=== PATIENT | male | born 1950 | race Caucasian/White ===

== ENCOUNTER 2017-06-12 09:05 | Day surgery (SDC) | payer MEDICARE ==
[2017-06-12] MEDS ORDERED: DIPRIVAN 200 MG/20 ML IV ONE (09:06)
[2017-06-12] MEDS ORDERED: Ketamine HCl 50 MG/ML IV ONE (09:06)
--- NOTE | 2017-06-12 09:19 | HP ---
DATE OF SURGERY: 06/12/2017 HISTORY OF PRESENT ILLNESS: The patient is a 67 year-old who had some hoarseness followed by Dr. Perales. He had some swelling of the vocal cords. He has been swallowing fine. He swallows liquids according to the patient although the longer he goes harder to get by upper esophagus according to the patient. He is on 600 mg of ranitidine daily. He is in need of upper endoscopy for further evaluation. PAST MEDICAL HISTORY: Chronic obstructive pulmonary disease, obesity, sleep apnea, arthritis, diabetes, depression. He sees Dr. Hernandez. He had coronary stents in the past in [place]. He did have myocardial infarction back in 2008. He was up to 383 pounds and he is now down to 326 pounds. PAST SURGICAL HISTORY: Left knee replacement in the past, back surgery in 1976. Coronary stents in the past. Hernia surgery in the past. MEDICATIONS: He has been on Lasix, Allopurinol for some gout, Klor-Con, aspirin, Nitrostat PRN, Plavix, carvedilol, Imdur, Co-Q10, ropinirole, diclofenac, Protonix, meclizine, gabapentin, MiraLAX, hydrocodone, Bydureon one shot per week. ALLERGIES: PREDNISONE. SHELLFISH. FAMILY HISTORY: Heart disease, diabetes, hypertension. SOCIAL HISTORY: No current smoking. No alcohol abuse. REVIEW OF SYSTEMS: Twelve systems reviewed per admission assessment. He has sleep apnea, arthritis, vertigo. History of chronic obstructive pulmonary disease. He had some heart failure and myocardial infarction in the past, degenerative disc disease. No chest pain or palpitations other systems negative or noncontributory as above and per preadmission questionnaire. Otherwise as noted above. PHYSICAL EXAMINATION: GENERAL: A chronically ill gentleman. HEENT: Sclerae nonicteric. NECK: No JVD. CHEST: Equal excursion, nonlabored breathing. CVS: Regular rate and rhythm. ABDOMEN: Soft. No peritoneal signs. EXTREMITIES: No significant edema. NEURO: Alert, moving extremities symmetrically. No gross motor deficits noted. IMPRESSION: History of some hoarseness need to evaluate for upper GI contributing factors such as esophagitis, reflux or other etiology. I feel he is a candidate for upper endoscopy. Risks and benefits explained in detail including but not limited to bleeding or infection, small risk of bowel injury or perforation possibly requiring open procedure, small risk of missed or nondiagnosis or incomplete exam possibly requiring barium enema, other studies or procedures, general risk of anesthesia or sedation. He understands and agrees to the planned procedure and will proceed with EGD possible biopsy, possibly dilatation of narrowed area noted as an outpatient under MAC anesthesia. Will need to hold his blood thinners preoperatively to make it safe for the procedure.
[2017-06-12] MEDS ORDERED: Lactated Ringers 1,000 ML IV SCH (10:00)
[2017-06-12 12:53] VITALS: BP 153/86; PULSE 66; O2SAT 96
--- NOTE | 2017-06-12 14:03 | OP ---
SURGERY DATE/TIME: 06/12/2017 1132 PREOPERATIVE DIAGNOSES: History of hoarseness, question of reflux. POSTOPERATIVE DIAGNOSES: 1) Mild gastritis. 2) No evidence of visible reflux changes in the esophagus. PROCEDURES: 1) EGD with cold biopsy of the antrum to evaluate for Helicobacter pylori. 2) Cold biopsy distal esophagus to evaluate for microscopic esophagitis or other etiology. SURGEON: Dr. Aaron Gill. ANESTHESIA: MAC. ESTIMATED BLOOD LOSS: Minimal. INDICATIONS: As noted above. Risks and benefits explained in detail and not limited to in the office and consent had been obtained. DESCRIPTION OF PROCEDURE AND FINDINGS: The patient is taken to the operating room. MAC anesthesia was introduced. After official time out and no disagreement with planned procedure, bite block positioned. Video gastroscope passed down the oropharynx. A picture is taken of the cord area. Scope was able to be easily passed through the proximal esophagus. No signs of any narrowing that needed dilatation at this time. The scope is passed down through the patent distal esophagus. There had been no visible gross signs of macroscopic esophagitis, no signs of Mora's, no signs of any obvious mucosal lesions. The scope was passed into the stomach. The gastroesophageal junction was about 46 cm. The scope was able to be passed through a lot of fluid in the stomach, this was suctioned clear, did have some mild chronic gastritis. Cold biopsy taken to evaluate for Helicobacter pylori in the antrum. The scope was able to be passed through the patent pylorus to the junction of the second and third portion of the duodenum. The duodenum, duodenal bulb grossly unremarkable. No signs of any ulcers, masses or mucosal lesions. The scope was then pulled back to the antrum. Again, cold biopsy had been taken for Helicobacter pylori. Good hemostasis noted. On retroflex there was difficult view but there were no gross signs of any large hiatal hernia visible endoscopically at this time. The scope was straightened. The gastroesophageal junction 46 cm. Z-line was crisp. There were no signs of any Mora's. No signs of any macroscopic esophagitis. Given his symptoms and complaints, it was felt that he warranted biopsy to evaluate for eosinophilic esophagitis or other etiology. Random cold biopsy taken distal esophagus. Otherwise the remainder of the esophagus no signs of any obvious masses. No signs of any significantly narrowed area to warrant dilatation at this point. Again, no macroscopic evidence of reflux changes in the esophagus on this endoscopic view. The scope was withdrawn. The patient tolerated the procedure well. There was no family available to discuss the findings with. I will see him back in the office next week to go over the results.
== END 2017-06-12 13:00 | disposition home or self-care (01) ==
LOC: SDC 09:05
PROVIDERS: ATTEND Surgery
PROC: 0DB78ZX Excision of Stomach, Pylorus, Via Natural or Artificial Opening Endoscopic, Diagnostic (ICD-10-PCS; principal; 2017-06-12)
PROC: 0DB38ZX Excision of Lower Esophagus, Via Natural or Artificial Opening Endoscopic, Diagnostic (ICD-10-PCS; 2017-06-12)
DX: K29.70 Gastritis, unspecified, without bleeding (principal)
CPT/HCPCS: 00740; 36415; 82962; 88305; J2704

== ENCOUNTER 2023-08-04 12:04 | Emergency (ER) | payer MEDICARE ==
[2023-08-04 12:36] VITALS: TEMP 97.3; O2SAT 94
[2023-08-04] MEDS ORDERED: ANTIVERT 25 MG PO ONE (12:50)
[2023-08-04] MEDS ORDERED: ANTIVERT 25 MG ONE (13:02)
[2023-08-04 13:12] LABS: Absolute Neutrophil Ct (ANC) 3.89 x10^3/uL (1.4-6.9); Basophil (Absolute #) 0 x10^3/uL (0-0.4); Eosinophil % 0.7 % (0.00-5.0); Eosinophil (Absolute #) 0.04 x10^3/uL (0-0.5); Hematocrit 40.5 % (42-50); IMMATURE GRAN # 0.01 x10^3u/L (0.00-0.03); IMMATURE GRAN % 0.2 % (0.00-0.4); Lymphocyte (Absolute #) 0.95 x10^3/uL (1.0-4.6); Lymphocytes % 17.5 % (24.0-44.0); Mean Cell Volume 91.8 fL (78-100); Mean Corpuscular Hemoglobin 29.5 pg (26-32); Mean Corpuscular Hgb Concent. 32.1 g/dL (32-36); Mean Platelet Volume 9.8 fL (7.5-11.0); Monocyte (Absolute #) 0.55 x10^3/uL (0.0-1.3); Monocytes % 10.1 % (0.0-12.0); Neutrophil % 71.5 % (36.0-66.0); Platelet Count 119 x10^3/uL (150-450); Red Blood Count 4.41 x10^6/uL (4.1-5.6); Red Cell Distribution Width 13.9 % (11.5-14.0); White Blood Count 5.4 x10^3/uL (4.0-10.5)
[2023-08-04 13:26] LABS: ALBUMIN 3.4 g/dL (3.5-5.0); ANION GAP 9.3 MEQ/L (5-15); BILIRUBIN,TOTAL 0.4 mg/dL (0.2-1.3); Creatinine 1 0.95 mg/dL (0.66-1.25); Potassium 4.2 mmol/L (3.5-5.1); Total Protein 5.7 g/dL (6.3-8.2)
[2023-08-04 13:28] LABS: INR 0.97 (0.8-3.0); PROTIME 10.6 SECONDS (9.4-12.5); PTT 34.5 SECONDS (25.1-36.5)
--- NOTE | 2023-08-04 15:13 | XRAY ---
Indication: Dizziness. Sagittal, coronal, and axial MRI brain performed using pre and post T1, T2, FLAIR, diffusion, and ADC sequences. 20cc Dotarem contrast used. Comparison: None Age-appropriate global atrophy with minimal periventricular degenerative micro-ischemia signal. Left posterior temporal lobe demonstrates small focus of encephalomalacia with surrounding gliosis favoring infarct. Following gadolinium, infarct demonstrates 9 x 11 x 9 mm focus round enhancement which can persist up to 8-10 weeks following infarct. No acute intracranial hemorrhage, abnormal extra-axial fluid collection, or mass effect. Diffusion images are negative for restricted signal. Following gadolinium, no other abnormal enhancing intra or extra-axial mass. Fourth ventricle is midline without hydrocephalus. 7/8 cranial nerve complex bilaterally symmetric. Normal flow void signal within the major intracerebral circulation. Normal-appearing craniocervical junction and sella turcica. Paranasal sinuses are clear. Impression: 1. 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 Small focus underlying enhancement suggests subacute infarct. 2. Atrophy and degenerative micro-ischemia within normal limits for patient's age. 3. Remaining MRI brain with contrast exam is negative.
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
[2023-08-04] MEDS ORDERED: DECADRON 10MG INJ. IV ONE (17:27)
[2023-08-04] MEDS ORDERED: DECADRON 10MG INJ. ONE (17:30)
[2023-08-04 17:51] VITALS: BP 127/77; PULSE 70; RESP 15
== END 2023-08-04 17:49 | disposition home or self-care (01) ==
LOC: ED 12:04
DX: G93.9 Disorder of brain, unspecified (principal); R42 Dizziness and giddiness; I10 Essential (primary) hypertension; E11.42 Type 2 diabetes mellitus with diabetic polyneuropathy; Z79.899 Other long term (current) drug therapy
CPT/HCPCS: 36000; 36415; 70553; 80053; 84484; 85025; 85610; 85730; 93005; 96374; 99284; J1100; J1642; A9270-GY

== ENCOUNTER 2023-12-06 13:16 | Observation (INO) | payer MEDICARE ==
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
[2023-12-06 13:52] LABS: Absolute Neutrophil Ct (ANC) 16.73 x10^3/uL (1.4-6.9); BASOPHIL % 0.2 % (0.0-0.4); Basophil (Absolute #) 0.03 x10^3/uL (0-0.4); Eosinophil (Absolute #) 0 x10^3/uL (0-0.5); Hematocrit 45.3 % (42-50); Hemoglobin 14.7 g/dL (12.5-18.0); IMMATURE GRAN # 0.27 x10^3u/L (0.00-0.03); IMMATURE GRAN % 1.5 % (0.00-0.4); Lymphocyte (Absolute #) 0.61 x10^3/uL (1.0-4.6); Lymphocytes % 3.3 % (24.0-44.0); Mean Cell Volume 90.8 fL (78-100); Mean Corpuscular Hemoglobin 29.5 pg (26-32); Mean Corpuscular Hgb Concent. 32.5 g/dL (32-36); Mean Platelet Volume 10.1 fL (7.5-11.0); Monocyte (Absolute #) 0.78 x10^3/uL (0.0-1.3); Monocytes % 4.2 % (0.0-12.0); Neutrophil % 90.8 % (36.0-66.0); Platelet Count 125 x10^3/uL (150-450); Red Blood Count 4.99 x10^6/uL (4.1-5.6); White Blood Count 18.4 x10^3/uL (4.0-10.5)
[2023-12-06 14:06] LABS: INR 1.05 (0.8-3.0); PROTIME 11.4 SECONDS (9.4-12.5)
[2023-12-06] MEDS ORDERED: Sodium Chloride 0.9% 1000 ML 1,000 ML ONE ×2 (14:09→20:52)
[2023-12-06] MEDS: Sodium Chloride 0.9% 1000 ML 1,000 ML IV SCH ×2 (14:11→20:54)
[2023-12-06 14:16] LABS: ALBUMIN 3.4 g/dL (3.5-5.0); ANION GAP 11.3 MEQ/L (5-15); BILIRUBIN,TOTAL 0.9 mg/dL (0.2-1.3); Calcium 8.4 mg/dL (8.4-10.2); Creatinine 1 0.94 mg/dL (0.66-1.25); EST GLOMERULAR FILTRATION RATE 85.1 ML/MIN; MAGNESIUM 1.9 mg/dL (1.6-2.3); Potassium 4.6 mmol/L (3.5-5.1); Total Protein 5.6 g/dL (6.3-8.2)
--- NOTE | 2023-12-06 14:48 | XRAY ---
Indication: Tachycardia. Leukocytosis. Comparison: September 17, 2016 Portable apical lordotic chest again hyperinflated with new minimal lingula infiltrate/atelectasis. Remaining heart and right lung unremarkable with incidental new right Port-A-Cath. Bony thorax intact.
[2023-12-06 15:19] LABS: ADD URINE CULTURE? NO (NO); Appearance Clear (Clear); Bacteria None Seen /HPF (None Seen); Bilirubin Negative (Negative); Blood Negative (Negative); Epithelial Cells None Seen /HPF (None Seen); Glucose, Urine Negative (Negative); Hyaline Casts NONE SEEN /LPF (0-2); Ketones Negative (Negative); Leukocyte Esterase Negative (Negative); Nitrite Negative (Negative); Ph 5.5 (4.6-8.0); Protein,Urine Dip Negative (Negative); RBC 0-2 /HPF (0-5); Urobilinogen 0.2 mg/dL (0.2); WBC 0-2 /HPF (0-5)
[2023-12-06] MEDS ORDERED: ROCEPHIN 1 GM / 100 ML NaCl 1 GM/100 ML IVPB IV ONE (15:27)
[2023-12-06] MEDS: ROCEPHIN 1 GM / 100 ML NaCl 1 GM/100 ML IVPB IV ONE (15:28)
[2023-12-06 15:49] LABS: INFLUENZA A NEGATIVE (NEGATIVE); INFLUENZA B NEGATIVE (NEGATIVE); RESPIRATORY SYNCTIAL VIRUS NEGATIVE (NEGATIVE); SARS-CoV-2 Xpert Express NEGATIVE (NEGATIVE)
[2023-12-06] MEDS ORDERED: Sodium Chloride 0.9% 500 ML 500 ML IV ONE (17:18)
[2023-12-06] MEDS: Sodium Chloride 0.9% 500 ML 500 ML IV ONE (17:22)
[2023-12-06] MEDS ORDERED: Zofran 4 MG/2 ML VIAL IV PRN (18:45)
[2023-12-06] MEDS ORDERED: TYLENOL 325 MG PO PRN (18:45)
[2023-12-06] MEDS ORDERED: HUMULIN R SQ PRN (18:45)
[2023-12-06] MEDS: ROCEPHIN 1 GM / 100 ML NaCl 1 GM/100 ML IVPB IV SCH (20:51)
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
[2023-12-06] MEDS ORDERED: NORCO 10-325 MG PO PRN (22:35)
[2023-12-07 05:18] LABS: Absolute Neutrophil Ct (ANC) 10.48 x10^3/uL (1.4-6.9); BASOPHIL % 0.2 % (0.0-0.4); Basophil (Absolute #) 0.03 x10^3/uL (0-0.4); Eosinophil % 0.3 % (0.00-5.0); Eosinophil (Absolute #) 0.04 x10^3/uL (0-0.5); Hematocrit 43.3 % (42-50); Hemoglobin 13.9 g/dL (12.5-18.0); IMMATURE GRAN # 0.25 x10^3u/L (0.00-0.03); IMMATURE GRAN % 1.9 % (0.00-0.4); Lymphocyte (Absolute #) 1.88 x10^3/uL (1.0-4.6); Mean Cell Volume 90.4 fL (78-100); Mean Corpuscular Hgb Concent. 32.1 g/dL (32-36); Mean Platelet Volume 9.6 fL (7.5-11.0); Monocyte (Absolute #) 0.71 x10^3/uL (0.0-1.3); Monocytes % 5.3 % (0.0-12.0); Neutrophil % 78.3 % (36.0-66.0); Platelet Count 105 x10^3/uL (150-450); Red Blood Count 4.79 x10^6/uL (4.1-5.6); Red Cell Distribution Width 16.4 % (11.5-14.0); White Blood Count 13.4 x10^3/uL (4.0-10.5)
[2023-12-07 05:34] LABS: ALBUMIN 3.2 g/dL (3.5-5.0); ANION GAP 8.2 MEQ/L (5-15); BILIRUBIN,TOTAL 0.7 mg/dL (0.2-1.3); Calcium 8.2 mg/dL (8.4-10.2); Creatinine 1 0.95 mg/dL (0.66-1.25); Potassium 4.6 mmol/L (3.5-5.1); Total Protein 5.1 g/dL (6.3-8.2)
[2023-12-07] MEDS: Neurontin PO SCH (09:07)
[2023-12-07] MEDS: Zetia 10 MG PO SCH (09:07)
[2023-12-07] MEDS: BUSPAR 5 MG PO SCH (09:08)
[2023-12-07] MEDS: PLAVIX Tablet PO SCH (09:08)
[2023-12-07] MEDS: Imdur 30 MG PO SCH (09:09)
[2023-12-07] MEDS: Coreg 3.125 MG PO SCH (09:09)
[2023-12-07] MEDS: ZYLOPRIM 300 MG PO SCH (09:09)
[2023-12-07] MEDS: Cyclobenzaprine 10 MG PO SCH (09:09)
[2023-12-07] MEDS: Klor Con PO SCH (09:09)
[2023-12-07] MEDS: Ecotrin 325 MG PO SCH (09:10)
[2023-12-07] MEDS: ceLEXa 20 MG PO SCH (09:10)
[2023-12-07] MEDS: Flomax 0.4 MG PO SCH (09:10)
[2023-12-07] MEDS: ATARAX 25 MG PO SCH (09:10)
[2023-12-07] MEDS: Lasix 40 MG PO SCH (09:10)
[2023-12-07] MEDS ORDERED: LASIX 20 MG PO SCH (10:00)
[2023-12-07] MEDS ORDERED: NON-FORMULARY ITEM (Citalopram Hydrobromide [Celexa] 40 MG Tablet) PO SCH (10:00)
[2023-12-07] MEDS ORDERED: NON-FORMULARY ITEM (Gabapentin [Neurontin] 600 MG Tablet) PO SCH (10:00)
[2023-12-07] MEDS ORDERED: Zithromax 500 MG/ 250 ML NaCl Premix 500 MG/250 ML IVPB IV SCH (10:00)
[2023-12-07] MEDS ORDERED: NON-FORMULARY ITEM (Buspirone Hcl [Buspirone Hcl] 30 MG Tablet) PO SCH (10:00)
[2023-12-07] MEDS ORDERED: NON-FORMULARY ITEM (Diazepam [Valium] 10 MG Tablet) PO SCH (10:00)
[2023-12-07 11:23] VITALS: BP 107/70; PULSE 72; RESP 17; TEMP 97.7; O2SAT 97
--- NOTE | 2023-12-07 13:03 | PCM.DS ---
Discharge Summary Date of Admission: 12/06/23 18:25 Date of Discharge: 12/07/2023 Admitting Physician: LAWANDA CAMPBELL MD Primary Care Provider: SIMONA DOBBINS Allergies Allergies shellfish derived Allergy (Verified 08/04/23 12:19) Nausea and Vomiting dye Allergy (Uncoded 08/04/23 12:19) Hospital Summary - Hospital Course Hospital Course: Admission information: 73-year-old man with history of CAD, HTN, COPD, GERD, and former tobacco abuse, who was sent from cardiology clinic with reported A-fib with RVR. In routine follow-up in clinic today, patient was having palpitations and diaphoresis, and when evaluated by Dr. Hernandez, was noted to be in A-fib with RVR with a rate in the 140s. He was sent to the ED for stabilization and evaluation. However, on arrival, he was back in sinus rhythm, with sinus tachycardia in the 110s. He was no longer having palpitations, but was noted to have an elevated white count. However, patient reports that he has been on prednisone for the past few weeks because of recurrent diarrhea secondary to his prior renal cancer. He denies cough, fevers, dyspnea, or sick contacts. He is only symptomatic treatment at this point is some bilateral hand pain when gripping for the past few weeks. In the ED he was started on Rocephin and azithromycin, and given slow IV fluids, but did not require any rate lowering medications. Hospital Course: ## Reported atrial fibrillation unable to confirm here, and we do not have access to his EKG reports from Dr. Hernandez's office, but presumably was truly in A-fib earlier. However, remains in sinus rhythm here. 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 Likely this is a paroxysmal atrial fibrillation. His [id number] score is 3. Possibly this was due to dehydration, as patient had mildly elevated lactate on arrival, quickly decreasing on repeat after getting some IV fluids. -Patient's HR remained controlled and in NSR while here. Patient wanted to be discharged home. Will have him follow-up as an outpatient with cardiology to discuss initiation of anticoagulation, especially as patient is already on Plavix and aspirin for cardiac stents. Call placed to Dr. Hernandez's office today but unable to talk to him prior to patient's discharge. Continue home Coreg 3.125, aspirin 325 ## Leukocytosis patient had elevated white blood cell count on arrival, but he has been on prednisone for the last few weeks for diarrhea, which has improved. There was concern in the ED that patient might have pneumonia, based on chest x- ray report. However, patient has no signs or symptoms of pneumonia, and upon my review of the x-ray, as no clear consolidation, and radiologist report is equally consistent with atelectasis. Discontinue antibiotics ## COPD patient remains stable on room air currently Follow oxygen. ## Anxiety and depression Continue home BuSpar, diazepam ## BPH Continue home Flomax ## Chronic back pain Continue home [place] 10 ## CAD with history of 2 prior stents, including one last year by Dr. Hernandez. Continue aspirin, Plavix, Coreg Patient stable for discharge today with outpatient follow up with Dr. Hernandez within a week. 35 mins spent in the discharge process. - Vitals & Intake/Output Vital Signs: Vital Signs Temperature 97.7 F 12/07/23 11:22 Pulse Rate 72 12/07/23 11:22 Respiratory Rate 17 12/07/23 11:22 Blood Pressure 107/70 12/07/23 11:22 O2 Sat by Pulse Oximetry 97 12/07/23 11:22 Intake & Output: Intake & Output 12/05/23 12/06/23 12/07/23 12/08/23 11:59 11:59 11:59 11:59 Intake Total 1000 Balance 1000 Weight 127.913 kg - Lab Result Diagrams: 12/07/23 04:30 12/07/23 04:30 Lab Results-Last 24 Hrs: Lab Results-Last 24 Hours 12/06/23 12/06/23 12/06/23 Range/Units 13:35 13:35 13:35 WBC 18.4 H (4.0-10.5) x10^3/uL RBC 4.99 (4.1-5.6) x10^6/uL Hgb 14.7 (12.5-18.0) g/dL Hct 45.3 (42-50) % MCV 90.8 (78-100) fL MCH 29.5 (26-32) pg MCHC 32.5 (32-36) g/dL RDW 16.0 H (11.5-14.0) % Plt Count 125 L (150-450) x10^3/uL MPV 10.1 (7.5-11.0) fL Gran % 90.8 H (36.0-66.0) % Immature Gran % (Auto) 1.5 H (0.00-0.4) % Nucleat RBC Rel Count 0.0 (0.00-0.1) % Eos # (Auto) 0 (0-0.5) x10^3/uL Immature Gran # (Auto) 0.27 H (0.00-0.03) x10^3u/L Absolute Lymphs (auto) 0.61 L (1.0-4.6) x10^3/uL Absolute Monos (auto) 0.78 (0.0-1.3) x10^3/uL Absolute Nucleated RBC 0.00 (0.00-0.01) x10^3u/L Lymphocytes % 3.3 L (24.0-44.0) % Monocytes % 4.2 (0.0-12.0) % Eosinophils % 0.0 (0.00-5.0) % Basophils % 0.2 (0.0-0.4) % Absolute Granulocytes 16.73 H (1.4-6.9) x10^3/uL Basophils # 0.03 (0-0.4) x10^3/uL PT 11.4 (9.4-12.5) SECONDS INR 1.05 (0.8-3.0) Sodium 138 (135-145) mmol/L Potassium 4.6 (3.5-5.1) mmol/L Chloride 102 (98-107) mmol/L Carbon Dioxide 30 (22-30) mmol/L Anion Gap 11.3 (5-15) MEQ/L BUN 36 H (9-20) mg/dL Creatinine 0.94 (0.66-1.25) mg/dL Estimated GFR 85.1 ML/MIN Glucose 116 H (74-106) mg/dL POC Glucometer (50 to 500) mg/dL Hemoglobin A1c (4.5-6.0) % Lactic Acid (0.4-2.0) Calcium 8.4 (8.4-10.2) mg/dL Magnesium 1.9 (1.6-2.3) mg/dL Total Bilirubin 0.90 (0.2-1.3) mg/dL AST 22 (17-59) U/L ALT 36 (0-50) U/L Alkaline Phosphatase 97 (38-126) U/L Troponin I (0.000-0.034) ng/mL NT-Pro-B Natriuret Pep 609 (<300) pg/mL Serum Total Protein 5.6 L (6.3-8.2) g/dL Albumin 3.4 L (3.5-5.0) g/dL Urine Color (Yellow) Urine Appearance (Clear) Urine pH (4.6-8.0) Ur Specific [place] (1.005-1.030) Urine Protein (Negative) Urine Glucose (UA) (Negative) mg/dL Urine Ketones (Negative) Urine Blood (Negative) Urine Nitrite (Negative) Urine Bilirubin (Negative) Urine Urobilinogen (0.2) mg/dL Ur Leukocyte Esterase (Negative) U Hyaline Cast (Auto) (0-2) /LPF Urine Microscopic RBC (0-5) /HPF Urine Microscopic WBC (0-5) /HPF Ur Epithelial Cells (None Seen) /HPF Urine Bacteria (None Seen) /HPF Urine Culture Reflexed (NO) Monoscreen (NEGATIVE) Influenza Type A Ag (NEGATIVE) Influenza Type B Ag (NEGATIVE) RSV (PCR) (NEGATIVE) SARS-CoV-2 (PCR) (NEGATIVE) 12/06/23 12/06/23 12/06/23 Range/Units 13:35 13:35 13:35 WBC (4.0-10.5) x10^3/uL RBC (4.1-5.6) x10^6/uL Hgb (12.5-18.0) g/dL Hct (42-50) % MCV (78-100) fL MCH (26-32) pg MCHC (32-36) g/dL RDW (11.5-14.0) % Plt Count (150-450) x10^3/uL MPV (7.5-11.0) fL Gran % (36.0-66.0) % Immature Gran % (Auto) (0.00-0.4) % Nucleat RBC Rel Count (0.00-0.1) % Eos # (Auto) (0-0.5) x10^3/uL Immature Gran # (Auto) (0.00-0.03) x10^3u/L Absolute Lymphs (auto) (1.0-4.6) x10^3/uL Absolute Monos (auto) (0.0-1.3) x10^3/uL Absolute Nucleated RBC (0.00-0.01) x10^3u/L Lymphocytes % (24.0-44.0) % Monocytes % (0.0-12.0) % Eosinophils % (0.00-5.0) % Basophils % (0.0-0.4) % Absolute Granulocytes (1.4-6.9) x10^3/uL Basophils # (0-0.4) x10^3/uL PT (9.4-12.5) SECONDS INR (0.8-3.0) Sodium (135-145) mmol/L Potassium (3.5-5.1) mmol/L Chloride (98-107) mmol/L Carbon Dioxide (22-30) mmol/L Anion Gap (5-15) MEQ/L BUN (9-20) mg/dL Creatinine (0.66-1.25) mg/dL Estimated GFR ML/MIN Glucose (74-106) mg/dL POC Glucometer (50 to 500) mg/dL Hemoglobin A1c 5.53 (4.5-6.0) % Lactic Acid (0.4-2.0) Calcium (8.4-10.2) mg/dL Magnesium (1.6-2.3) mg/dL Total Bilirubin (0.2-1.3) mg/dL AST (17-59) U/L ALT (0-50) U/L Alkaline Phosphatase (38-126) U/L Troponin I 0.022 (0.000-0.034) ng/mL NT-Pro-B Natriuret Pep (<300) pg/mL Serum Total Protein (6.3-8.2) g/dL Albumin (3.5-5.0) g/dL Urine Color (Yellow) Urine Appearance (Clear) Urine pH (4.6-8.0) Ur Specific [place] (1.005-1.030) Urine Protein (Negative) Urine Glucose (UA) (Negative) mg/dL Urine Ketones (Negative) Urine Blood (Negative) Urine Nitrite (Negative) Urine Bilirubin (Negative) Urine Urobilinogen (0.2) mg/dL Ur Leukocyte Esterase (Negative) U Hyaline Cast (Auto) (0-2) /LPF Urine Microscopic RBC (0-5) /HPF Urine Microscopic WBC (0-5) /HPF Ur Epithelial Cells (None Seen) /HPF Urine Bacteria (None Seen) /HPF Urine Culture Reflexed (NO) Monoscreen NEGATIVE (NEGATIVE) Influenza Type A Ag (NEGATIVE) Influenza Type B Ag (NEGATIVE) RSV (PCR) (NEGATIVE) SARS-CoV-2 (PCR) (NEGATIVE) 12/06/23 12/06/23 12/06/23 Range/Units 14:27 14:46 14:50 WBC (4.0-10.5) x10^3/uL RBC (4.1-5.6) x10^6/uL Hgb (12.5-18.0) g/dL Hct (42-50) % MCV (78-100) fL MCH (26-32) pg MCHC (32-36) g/dL RDW (11.5-14.0) % Plt Count (150-450) x10^3/uL MPV (7.5-11.0) fL Gran % (36.0-66.0) % Immature Gran % (Auto) (0.00-0.4) % Nucleat RBC Rel Count (0.00-0.1) % Eos # (Auto) (0-0.5) x10^3/uL Immature Gran # (Auto) (0.00-0.03) x10^3u/L Absolute Lymphs (auto) (1.0-4.6) x10^3/uL Absolute Monos (auto) (0.0-1.3) x10^3/uL Absolute Nucleated RBC (0.00-0.01) x10^3u/L Lymphocytes % (24.0-44.0) % Monocytes % (0.0-12.0) % Eosinophils % (0.00-5.0) % Basophils % (0.0-0.4) % Absolute Granulocytes (1.4-6.9) x10^3/uL Basophils # (0-0.4) x10^3/uL PT (9.4-12.5) SECONDS INR (0.8-3.0) Sodium (135-145) mmol/L Potassium (3.5-5.1) mmol/L Chloride (98-107) mmol/L Carbon Dioxide (22-30) mmol/L Anion Gap (5-15) MEQ/L BUN (9-20) mg/dL Creatinine (0.66-1.25) mg/dL Estimated GFR ML/MIN Glucose (74-106) mg/dL POC Glucometer (50 to 500) mg/dL Hemoglobin A1c (4.5-6.0) % Lactic Acid 2.9 H (0.4-2.0) Calcium (8.4-10.2) mg/dL Magnesium (1.6-2.3) mg/dL Total Bilirubin (0.2-1.3) mg/dL AST (17-59) U/L ALT (0-50) U/L Alkaline Phosphatase (38-126) U/L Troponin I (0.000-0.034) ng/mL NT-Pro-B Natriuret Pep (<300) pg/mL Serum Total Protein (6.3-8.2) g/dL Albumin (3.5-5.0) g/dL Urine Color Yellow (Yellow) Urine Appearance Clear (Clear) Urine pH 5.5 (4.6-8.0) Ur Specific [place] 1.020 (1.005-1.030) Urine Protein Negative (Negative) Urine Glucose (UA) Negative (Negative) mg/dL Urine Ketones Negative (Negative) Urine Blood Negative (Negative) Urine Nitrite Negative (Negative) Urine Bilirubin Negative (Negative) Urine Urobilinogen 0.2 (0.2) mg/dL Ur Leukocyte Esterase Negative (Negative) U Hyaline Cast (Auto) NONE SEEN (0-2) /LPF Urine Microscopic RBC 0-2 (0-5) /HPF Urine Microscopic WBC 0-2 (0-5) /HPF Ur Epithelial Cells None Seen (None Seen) /HPF Urine Bacteria None Seen (None Seen) /HPF Urine Culture Reflexed NO (NO) Monoscreen (NEGATIVE) Influenza Type A Ag NEGATIVE (NEGATIVE) Influenza Type B Ag NEGATIVE (NEGATIVE) RSV (PCR) NEGATIVE (NEGATIVE) SARS-CoV-2 (PCR) NEGATIVE (NEGATIVE) 12/06/23 12/06/23 12/06/23 Range/Units 16:13 16:38 18:51 WBC (4.0-10.5) x10^3/uL RBC (4.1-5.6) x10^6/uL Hgb (12.5-18.0) g/dL Hct (42-50) % MCV (78-100) fL MCH (26-32) pg MCHC (32-36) g/dL RDW (11.5-14.0) % Plt Count (150-450) x10^3/uL MPV (7.5-11.0) fL Gran % (36.0-66.0) % Immature Gran % (Auto) (0.00-0.4) % Nucleat RBC Rel Count (0.00-0.1) % Eos # (Auto) (0-0.5) x10^3/uL Immature Gran # (Auto) (0.00-0.03) x10^3u/L Absolute Lymphs (auto) (1.0-4.6) x10^3/uL Absolute Monos (auto) (0.0-1.3) x10^3/uL Absolute Nucleated RBC (0.00-0.01) x10^3u/L Lymphocytes % (24.0-44.0) % Monocytes % (0.0-12.0) % Eosinophils % (0.00-5.0) % Basophils % (0.0-0.4) % Absolute Granulocytes (1.4-6.9) x10^3/uL Basophils # (0-0.4) x10^3/uL PT (9.4-12.5) SECONDS INR (0.8-3.0) Sodium (135-145) mmol/L Potassium (3.5-5.1) mmol/L Chloride (98-107) mmol/L Carbon Dioxide (22-30) mmol/L Anion Gap (5-15) MEQ/L BUN (9-20) mg/dL Creatinine (0.66-1.25) mg/dL Estimated GFR ML/MIN Glucose (74-106) mg/dL POC Glucometer 40 L* (50 to 500) mg/dL Hemoglobin A1c (4.5-6.0) % Lactic Acid 1.2 (0.4-2.0) Calcium (8.4-10.2) mg/dL Magnesium (1.6-2.3) mg/dL Total Bilirubin (0.2-1.3) mg/dL AST (17-59) U/L ALT (0-50) U/L Alkaline Phosphatase (38-126) U/L Troponin I 0.027 (0.000-0.034) ng/mL NT-Pro-B Natriuret Pep (<300) pg/mL Serum Total Protein (6.3-8.2) g/dL Albumin (3.5-5.0) g/dL Urine Color (Yellow) Urine Appearance (Clear) Urine pH (4.6-8.0) Ur Specific [place] (1.005-1.030) Urine Protein (Negative) Urine Glucose (UA) (Negative) mg/dL Urine Ketones (Negative) Urine Blood (Negative) Urine Nitrite (Negative) Urine Bilirubin (Negative) Urine Urobilinogen (0.2) mg/dL Ur Leukocyte Esterase (Negative) U Hyaline Cast (Auto) (0-2) /LPF Urine Microscopic RBC (0-5) /HPF Urine Microscopic WBC (0-5) /HPF Ur Epithelial Cells (None Seen) /HPF Urine Bacteria (None Seen) /HPF Urine Culture Reflexed (NO) Monoscreen (NEGATIVE) Influenza Type A Ag (NEGATIVE) Influenza Type B Ag (NEGATIVE) RSV (PCR) (NEGATIVE) SARS-CoV-2 (PCR) (NEGATIVE) 12/06/23 12/06/23 12/07/23 Range/Units 20:11 22:03 04:30 WBC 13.4 H (4.0-10.5) x10^3/uL RBC 4.79 (4.1-5.6) x10^6/uL Hgb 13.9 (12.5-18.0) g/dL Hct 43.3 (42-50) % MCV 90.4 (78-100) fL MCH 29.0 (26-32) pg MCHC 32.1 (32-36) g/dL RDW 16.4 H (11.5-14.0) % Plt Count 105 L (150-450) x10^3/uL MPV 9.6 (7.5-11.0) fL Gran % 78.3 H (36.0-66.0) % Immature Gran % (Auto) 1.9 H (0.00-0.4) % Nucleat RBC Rel Count 0.0 (0.00-0.1) % Eos # (Auto) 0.04 (0-0.5) x10^3/uL Immature Gran # (Auto) 0.25 H (0.00-0.03) x10^3u/L Absolute Lymphs (auto) 1.88 (1.0-4.6) x10^3/uL Absolute Monos (auto) 0.71 (0.0-1.3) x10^3/uL Absolute Nucleated RBC 0.00 (0.00-0.01) x10^3u/L Lymphocytes % 14.0 L (24.0-44.0) % Monocytes % 5.3 (0.0-12.0) % Eosinophils % 0.3 (0.00-5.0) % Basophils % 0.2 (0.0-0.4) % Absolute Granulocytes 10.48 H (1.4-6.9) x10^3/uL Basophils # 0.03 (0-0.4) x10^3/uL PT (9.4-12.5) SECONDS INR (0.8-3.0) Sodium (135-145) mmol/L Potassium (3.5-5.1) mmol/L Chloride (98-107) mmol/L Carbon Dioxide (22-30) mmol/L Anion Gap (5-15) MEQ/L BUN (9-20) mg/dL Creatinine (0.66-1.25) mg/dL Estimated GFR ML/MIN Glucose (74-106) mg/dL POC Glucometer 165 H (50 to 500) mg/dL Hemoglobin A1c (4.5-6.0) % Lactic Acid (0.4-2.0) Calcium (8.4-10.2) mg/dL Magnesium (1.6-2.3) mg/dL Total Bilirubin (0.2-1.3) mg/dL AST (17-59) U/L ALT (0-50) U/L Alkaline Phosphatase (38-126) U/L Troponin I 0.034 (0.000-0.034) ng/mL NT-Pro-B Natriuret Pep (<300) pg/mL Serum Total Protein (6.3-8.2) g/dL Albumin (3.5-5.0) g/dL Urine Color (Yellow) Urine Appearance (Clear) Urine pH (4.6-8.0) Ur Specific [place] (1.005-1.030) Urine Protein (Negative) Urine Glucose (UA) (Negative) mg/dL Urine Ketones (Negative) Urine Blood (Negative) Urine Nitrite (Negative) Urine Bilirubin (Negative) Urine Urobilinogen (0.2) mg/dL Ur Leukocyte Esterase (Negative) U Hyaline Cast (Auto) (0-2) /LPF Urine Microscopic RBC (0-5) /HPF Urine Microscopic WBC (0-5) /HPF Ur Epithelial Cells (None Seen) /HPF Urine Bacteria (None Seen) /HPF Urine Culture Reflexed (NO) Monoscreen (NEGATIVE) Influenza Type A Ag (NEGATIVE) Influenza Type B Ag (NEGATIVE) RSV (PCR) (NEGATIVE) SARS-CoV-2 (PCR) (NEGATIVE) 12/07/23 Range/Units 04:30 WBC (4.0-10.5) x10^3/uL RBC (4.1-5.6) x10^6/uL Hgb (12.5-18.0) g/dL Hct (42-50) % MCV (78-100) fL MCH (26-32) pg MCHC (32-36) g/dL RDW (11.5-14.0) % Plt Count (150-450) x10^3/uL MPV (7.5-11.0) fL Gran % (36.0-66.0) % Immature Gran % (Auto) (0.00-0.4) % Nucleat RBC Rel Count (0.00-0.1) % Eos # (Auto) (0-0.5) x10^3/uL Immature Gran # (Auto) (0.00-0.03) x10^3u/L Absolute Lymphs (auto) (1.0-4.6) x10^3/uL Absolute Monos (auto) (0.0-1.3) x10^3/uL Absolute Nucleated RBC (0.00-0.01) x10^3u/L Lymphocytes % (24.0-44.0) % Monocytes % (0.0-12.0) % Eosinophils % (0.00-5.0) % Basophils % (0.0-0.4) % Absolute Granulocytes (1.4-6.9) x10^3/uL Basophils # (0-0.4) x10^3/uL PT (9.4-12.5) SECONDS INR (0.8-3.0) Sodium 135 (135-145) mmol/L Potassium 4.6 (3.5-5.1) mmol/L Chloride 102 (98-107) mmol/L Carbon Dioxide 30 (22-30) mmol/L Anion Gap 8.2 (5-15) MEQ/L BUN 37 H (9-20) mg/dL Creatinine 0.95 (0.66-1.25) mg/dL Estimated GFR 84.0 ML/MIN Glucose 100 (74-106) mg/dL POC Glucometer (50 to 500) mg/dL Hemoglobin A1c (4.5-6.0) % Lactic Acid (0.4-2.0) Calcium 8.2 L (8.4-10.2) mg/dL Magnesium (1.6-2.3) mg/dL Total Bilirubin 0.70 (0.2-1.3) mg/dL AST 23 (17-59) U/L ALT 35 (0-50) U/L Alkaline Phosphatase 103 (38-126) U/L Troponin I (0.000-0.034) ng/mL NT-Pro-B Natriuret Pep (<300) pg/mL Serum Total Protein 5.1 L (6.3-8.2) g/dL Albumin 3.2 L (3.5-5.0) g/dL Urine Color (Yellow) Urine Appearance (Clear) Urine pH (4.6-8.0) Ur Specific [place] (1.005-1.030) Urine Protein (Negative) Urine Glucose (UA) (Negative) mg/dL Urine Ketones (Negative) Urine Blood (Negative) Urine Nitrite (Negative) Urine Bilirubin (Negative) Urine Urobilinogen (0.2) mg/dL Ur Leukocyte Esterase (Negative) U Hyaline Cast (Auto) (0-2) /LPF Urine Microscopic RBC (0-5) /HPF Urine Microscopic WBC (0-5) /HPF Ur Epithelial Cells (None Seen) /HPF Urine Bacteria (None Seen) /HPF Urine Culture Reflexed (NO) Monoscreen (NEGATIVE) Influenza Type A Ag (NEGATIVE) Influenza Type B Ag (NEGATIVE) RSV (PCR) (NEGATIVE) SARS-CoV-2 (PCR) (NEGATIVE) Micro Results-Entire Visit: Microbiology 12/06/23 14:46 Urine Culture - Preliminary Catherized No growth. - Radiology Exams Ordered Rad Exams-Entire Visit: Radiology Procedures Category Date Time Status CHEST 1 VIEW (PORTABLE) Stat Exams 12/06/23 14:28 Completed - Procedures and Test Procedures and Tests throughout Hospitalization: Therapy Orders & Screens 12/06/23 18:45 EKG REPEAT IN AM Comment: Discharge Exam General Appearance: no apparent distress, alert Neurologic Exam: alert, oriented x 3, cooperative, normal mood/affect, nml cerebellar function, sensation nml, No motor deficits Eye Exam: PERRL, EOMI, eyes nml inspection Ears, Nose, Throat Exam: normal ENT inspection, pharynx normal, moist mucous membranes Neck Exam: normal inspection, non-tender, supple, full range of motion Respiratory Exam: normal breath sounds, lungs clear, No respiratory distress Cardiovascular Exam: regular rate/rhythm, normal heart sounds Gastrointestinal/Abdomen Exam: soft, No tenderness, No mass Male Genitalia Exam: deferred Rectal Exam: deferred Extremity Exam: normal inspection, normal range of motion Telemedicine Encounter - Telemedicine Encounter Telemedicine Encounter: The entirety of this encounter was performed via Telemedicine" - Discharge Discharge Date: 12/07/23 Condition: Stable Prescriptions: Continue Hydrocodone/APAP 10/325 mg [[place] 10/325 MG TableT] 1 tab PO Q4H PRN PRN PRN Reason: Pain Gabapentin [Neurontin] 800 mg PO TID Meclizine HCl 25 mg [Antivert 25 mg] 25 mg PO QID Potassium Chloride Tab* [Klor Con] 10 meq PO BID Furosemide 20 mg [Lasix 20 mg] 40 mg PO DAILY Allopurinol 300 mg [Zyloprim 300 mg] 300 mg PO DAILY Ubidecarenone [Co Q-10] 400 mg PO DAILY Carvedilol 3.125 mg [Coreg 3.125 MG] 3.125 mg PO BID Isosorbide Mononitrate 30 mg [Imdur 30 MG] 30 mg PO DAILY Citalopram Hydrobromide [Celexa] 40 mg PO DAILY Polyethylene Glycol 3350 [Miralax] 1 ea UD Nitroglycerin 1 ea UD Aspirin EC 325 mg [Ecotrin 325 MG] 325 mg PO DAILY #0 Clopidogrel Bisulfate [PLAVIX Tablet] 75 mg PO DAILY #0 Fluticasone Propionate [Flonase Nasal] 0 gm INTRANASAL DAILY Cyclobenzaprine HCl 10 mg [Cyclobenzaprine 10 MG] 10 mg PO QID Tamsulosin HCl 0.4 mg [Flomax 0.4 MG] 0.4 mg PO DAILY Buspirone HCl 30 mg PO DAILY hydrOXYzine HCL [Hydroxyzine HCl] 25 mg PO DAILY Ezetimibe 10 mg [Zetia 10 MG] 10 mg PO DAILY Instructions: Heart Healthy Diet Follow up with: OLINDA CABA FNP [Primary Care Provider] - 12/11/23 3:00 pm REID SAMUELS PA [NON-STAFF PHY W/O PRIVILEGES] - 12/20/23 2:30 pm (at [facility] )
== END 2023-12-07 13:20 | disposition home or self-care (01) ==
LOC: ED 13:16 → MED SURG 18:25
PROVIDERS: ADMIT Internal Medicine; ATTEND Internal Medicine
DX: I48.20 Chronic atrial fibrillation, unspecified (principal); D72.829 Elevated white blood cell count, unspecified; J44.9 Chronic obstructive pulmonary disease, unspecified; F41.9 Anxiety disorder, unspecified; N40.0 Benign prostatic hyperplasia without lower urinary tract symptoms; M54.9 Dorsalgia, unspecified; I25.10 Atherosclerotic heart disease of native coronary artery without angina pectoris; I10 Essential (primary) hypertension; I25.2 Old myocardial infarction; Z79.01 Long term (current) use of anticoagulants; Z79.899 Other long term (current) drug therapy; Z20.828 Contact with and (suspected) exposure to other viral communicable diseases; Z85.528 Personal history of other malignant neoplasm of kidney
CPT/HCPCS: 0241U; 36000; 36415; 71045; 80053; 81001; 82947; 83036; 83605; 83735; 83880; 84484; 85025; 85610; 86308; 87040; 87086; 93005; 93268; 94760; 96365; 99285; G0378; Q3014; J0696; A9270-GY